=== PATIENT | male | born 1970 | race Caucasian/White ===

== ENCOUNTER 2017-03-21 11:46 | Emergency (ER) | payer OTHER ==
[2017-03-21] MEDS: BUPIVACAINE HCL/PF 2.5 MG/ML 10ML VIAL IV ONE (12:00)
[2017-03-21] MEDS: 0.9 % SODIUM CHLORIDE 100 ML IV ONE (13:35)
[2017-03-21] MEDS: ceFAZolin SODIUM 1 GM VIAL IVP ONE (13:35)
[2017-03-21] MEDS: DIPH,PERTUSS(ACELL),TET VAC/PF 0.5 ML DISP.SYRIN IM ONE (13:46)
--- NOTE | 2017-03-21 13:56 | ED Physician Documentation ---
Hand Injury - HISTORIAN Historian: patient - HPI Stated Complaint: Right fifth digit laceration Chief Complaint: Hand Injury (laceration of fifth digit of right hand) Additional Information: This is a 46year old male who was unloading a piece of machinery at [employer] and two metal bars became hung up. He tried to free them and his right hand was crushed between them. It was bleeding significantly but with compression is controlled. Onset: just prior to arrival Where: work Severity: severe Duration: persistent since Context: laceration, crush Location of Injury: R fingers Modifying Factors: pain on movement Further Comments: no - ROS CONST: no problems GI/: denies: problems urinating NEURO: none CVS/RESP: none LNMP: denies: other EYES/ENT: none MS/SKIN/LYMPH: none - PAST HX Past History: other (HTN) Immunizations: tetanus (given today) Allergies/Adverse Reactions: Allergies Allergy/AdvReac Type Severity Reaction Status Date / Time No Known Allergies Allergy Verified 03/21/17 13:19 Home Medications: Ambulatory Orders Medication Instructions Recorded Hydrochlorothiazide [Hydrodiuril] 25 mg PO DAILY 03/21/17 - SOCIAL HX Smoking History: non-smoker Alcohol Use: none Drug Use: none - FAMILY HX Family History: no significant history - VITAL SIGNS Vital Signs: Vital Signs Temp Pulse Resp BP Pulse Ox 95.7 F L 82 20 180/116 96 03/21/17 11:47 03/21/17 11:47 03/21/17 11:47 03/21/17 11:47 03/21/17 11:47 ED Results Lab/Radiology - Orders Orders: ED Orders Category Date Time Status FINGER 2 VIEWS OR MORE [RAD] Stat Exams 03/21/17 12:02 Ordered 0.9 % Sodium Chloride [Sodium Chloride] 100 ml Med 03/21/17 13:30 Discontinued IV .STK-MED Bupivacaine HCl/Pf [Marcaine 0.25% Vial] Med 03/21/17 11:55 Discontinued 25 mg IV .STK-MED ONE Diph,Pertuss(Acell),Tet Vac/Pf [Adacel] Med 03/21/17 13:20 Discontinued 0.5 ml IM .ONCE ONE ceFAZolin SODIUM [Ancef] Med 03/21/17 13:21 Discontinued 1 gm IVP NOW ONE Hand Injury Physical Exam - Exam General Appearance: alert, moderate distress Hand: bony tenderness, limited ROM, pain, deformity (angulation of fifth digit between the PIP and DIP joints), other (active bleeding is easily controlled with compression) Wrist: normal inspection Neuro: decreased fine touch (distal right fifth digit) Vascular: no vascular compromise Tendons: tendon function nml (flexion and extension tendon function is intact) Forearm/Elbow/Arm: uninjured above wrist Skin: warm/dry Head/ENT: nml inspection Neck/Back: nml inspection Resp/CVS: chest non-tender Abdomen: non-tender Discharge Clincal Impression: Hand crush injury Referrals: Primary Doctor,No [Primary Care Provider] - 2 Days Condition: Good Disposition: 02 XFER SHT-TRM HOSP Decision to Admit: NO Date of Decison to Admit: 03/21/17 Decision Time: 14:06
[2017-03-21 14:29] VITALS: BP 177/105
--- NOTE | 2017-03-21 14:55 | Diagnostic Imaging Report ---
TAYLA SEPULVEDA [facility] [id number] [facility]ly [facility], [facility] [address] [address] Report Submission Date: Mar 21, 2017 1:03:57 PM BIT SHAVER Patient Study Name: GEE RIDLEY Date: Mar 21, 2017 12:46:29 PM BIT SHAVER Modality Type: CR Gender: M Description: UPPER EXTREMITY : 66 Institution: [facility] Physician: TAYLA SEPULVEDA Examination: Plain film extremity. History: 5th digit injury. Comparison exams: None available Findings: 3 views the right 5th digit demonstrates a comminuted fracture involving the mid phalanx of the 5th digit. Margins of the distal and proximal phalynx without gross cortical irregularity. Significant soft tissue fullness. Impression: Comminuted fracture mid phalanx 5th digit. Electronically signed on Mar 21, 2017 1:03:57 PM BIT SHAVER by: Arturo DICK
== END 2017-03-21 14:25 | disposition short-term general hospital (02) ==
LOC: ED 11:46
DX: S67.196A Crushing injury of right little finger, initial encounter (principal); Z23 Encounter for immunization; X58.XXXA Exposure to other specified factors, initial encounter; Y93.9 Activity, unspecified; Y92.9 Unspecified place or not applicable; Y99.0 Civilian activity done for income or pay
CPT/HCPCS: 73140; 90471; 90715; 96374; 99282; J0690; J3490; S1016